=== PATIENT | female | born 1950 | race Caucasian/White ===

== ENCOUNTER 2017-05-20 23:58 | Emergency (ER) | payer OTHER ==
[~2017-05-20] VITALS: Ht 160 cm; Wt 79.9 kg
[2017-05-21 00:28] VITALS: TEMP 37; Ht 160 cm; Wt 79.9 kg
[2017-05-21 00:31] VITALS: BP 157/86
[2017-05-21 00:44] LABS: MEAN CELL VOLUME 92.3 fL (80-100); MEAN CORPUSCULAR HEMOGLOBIN 31.6 pg (25-34); MEAN CORPUSCULAR HGB CONC 34.3 g/dl (32-36); MEAN PLATELET VOLUME 9.8 fL (7.4-10.4); PLATELET COUNT 234 K/uL (130-400); RED BLOOD COUNT 5.09 M/uL (4.2-5.4); WHITE BLOOD COUNT 8.58 K/uL (4.8-10.8)
[2017-05-21] MEDS ORDERED: SODIUM CHLORIDE 0.9% 1000ML 1,000 ML IV STA (00:54)
[2017-05-21 01:02] LABS: POINT OF CARE TROPONIN I < 0.030 ng/ml (0-0.045)
--- NOTE | 2017-05-21 01:02 | EMERGENCY ROOM VISIT NOTE ---
History Report prepared by Ajayibe: Maureen Poon Under the Supervision of: Dr. Hector Keller M.D. First contact with patient: 00:49 Chief Complaint: CHEST PAIN Stated Complaint: CHEST PAIN Nursing Triage Summary: at game [place], started having CP and SOB at end of first half, waited until end of game to come to ER. states she also felt anxious during game and does currently. given 324 aspirin, 1 nitro spray by EMS History of Present Illness The patient is a 66 year old female who presents to the Emergency Room with complaints of sharp chest pain beginning a couple hours ago. The patient notes that she was at the [employer] game when the pain started. Presently, her pain is still present but lessened from its onset. The patient notes that she has had similar chest pains in the past and her PCP told her it was anxiety induced. She notes that when her chest pain began she felt anxious with the crowd at the game and notes it felt more difficult to breathe. The patient has a history of hypoglycemia, hypertension, and high cholesterol. Source of History: patient Onset: couple hours ago Position: chest Quality: sharp Timing: other (episode) Associated Symptoms: + SOB Review of Systems See HPI for pertinent positives and negatives. A total of ten systems were reviewed and were otherwise negative. Past Medical & Surgical Medical Problems: (1) High cholesterol (2) Hypertension Family History No pertinent family history stated. Social History Smoking Status: Never Smoker Smokeless Tobacco Use: No Drug Use: none Marital Status: Housing Status: lives with significant other Current/Historical Medications Scheduled Aspirin (Aspirin Ec), 81 MG PO QAM Atorvastatin (Lipitor), 10 MG PO Q2D Cholecalciferol (Vitamin D3), 1 CAP PO QAM Diltiazem Hcl Extended Release (Diltiazem Hcl Er), 240 MG PO QPM Olmesartan/Hctz (Benicar Hct 20/12.5), 1 TAB PO QAM Allergies Coded Allergies: Lidocaine (Verified Allergy, Severe, ANAPHYLAXIS, 05/21/17) Penicillins (Verified Allergy, Severe, RASH, 05/21/17) Sulfa Antibiotics (Verified Allergy, Severe, rash,swelling, 05/21/17) Acetone (Verified Allergy, Intermediate, RASH, 05/21/17) Amoxicillin (Verified Allergy, Intermediate, SHORTNESS OF BREATH, 05/21/17 ) Cephalosporins (Verified Allergy, Intermediate, RASH, 05/21/17) Ciprofloxacin (Verified Allergy, Intermediate, RASH, 05/21/17) Clindamycin (Verified Allergy, Intermediate, RASH, 05/21/17) Erythromycin (Verified Allergy, Intermediate, RASH, 05/21/17) Uncoded Allergies: MONOHYDRATE (Allergy, Intermediate, RASH, 05/21/17) Physical Exam Vital Signs Date Time Temp Pulse Resp B/P (MAP) Pulse Ox O2 Delivery O2 Flow Rate FiO2 05/21/17 03:53 102 05/21/17 02:58 95 20 99 Room Air 05/21/17 02:28 100 21 05/21/17 01:58 101 22 05/21/17 00:48 Room Air 05/21/17 00:48 98 Room Air 05/21/17 00:31 157/86 05/21/17 00:28 78 17 97 Room Air 05/21/17 00:28 37.0 92 18 170/86 96 Room Air 05/21/17 00:12 88 05/21/17 00:05 170/86 Physical Exam GENERAL: Awake, alert, anxious-appearing, in no distress HENT: Normocephalic, atraumatic. Oropharynx unremarkable. Dry MM. EYES: Normal conjunctiva. Sclera non-icteric. NECK: Supple. No nuchal rigidity. FROM. No JVD. RESPIRATORY: Clear to auscultation. CARDIAC: Regular rate, normal rhythm. Extremities warm and well perfused. Pulses equal. ABDOMEN: Soft, non-distended. No tenderness to palpation. No rebound or guarding. No masses. RECTAL: Deferred. MUSCULOSKELETAL: Chest examination reveals no tenderness. The back is symmetrical on inspection without obvious abnormality. There is no CVA tenderness to palpation. No joint edema. LOWER EXTREMITIES: Calves are equal size bilaterally and non-tender. No edema. No discoloration. NEURO: Normal sensorium. No sensory or motor deficits noted. SKIN: No rash or jaundice noted. Medical Decision & Procedures ER Provider Diagnostic Interpretation: Radiology results as stated below per my review and radiologist interpretation: Chest X-Ray: lungs clear normal mediastinum Laboratory Results 05/20/17 23:58 05/20/17 23:58 Test 05/20/17 23:58 05/21/17 00:43 05/21/17 00:52 10/22/17 02:44 Red Blood Count 5.09 M/uL (4.2-5.4) Mean Corpuscular Volume 92.3 fL (80-100) Mean Corpuscular Hemoglobin 31.6 pg (25-34) Mean Corpuscular Hemoglobin Concent 34.3 g/dl (32-36) RDW Standard Deviation 42.5 fL (36.4-46.3) RDW Coefficient of Variation 12.6 % (11.5-14.5) Mean Platelet Volume 9.8 fL (7.4-10.4) Anion Gap 7.0 mmol/L (3-11) Est Creatinine Clear Calc Drug Dose 51.7 ml/min Estimated GFR () 61.4 Estimated GFR (Non- 53.0 BUN/Creatinine Ratio 17.9 (10-20) Calcium Level 9.0 mg/dl (8.5-10.1) Total Bilirubin 0.3 mg/dl (0.2-1) Aspartate Amino Transf (AST/SGOT) 18 U/L (15-37) Alanine Aminotransferase (ALT/SGPT) 26 U/L (12-78) Alkaline Phosphatase 106 U/L (45-117) Total Creatine Kinase 108 U/L (26-192) Creatine Kinase MB 1.9 ng/ml (0.5-3.6) Creatine Kinase MB Ratio 1.8 (0-3.0) Total Protein 8.2 gm/dl (6.4-8.2) Albumin 3.9 gm/dl (3.4-5.0) Globulin 4.3 gm/dl (2.5-4.0) Albumin/Globulin Ratio 0.9 (0.9-2) Bedside D-Dimer 161 ng/mlFEU (0-450) Bedside Troponin I < 0.030 ng/ml (0-0.045) Prothrombin Time 10.5 SECONDS (9.0-12.0) Prothromb Time International Ratio 1.0 (0.9-1.1) Activated Partial Thromboplast Time 25.6 SECONDS (21.0-31.0) Partial Thromboplastin Ratio 1.0 Troponin I < 0.015 ng/ml (0-0.045) Laboratory results reviewed by me Medications Administered Medications (Trade) Dose Ordered Sig/Mary Route Start Time Stop Time Status Last Admin Dose Admin Sodium Chloride 1,000 ml @ 999 mls/hr Q1H1M STAT IV 05/21/17 00:54 05/21/17 01:54 DC 05/21/17 00:54 999 MLS/HR ECG Indication: chest pain Rate (beats per minute): 74 Rhythm: sinus with SA Findings: no acute ischemic change, other (normal axis, normal intervals) Comparison ECG Date: REPEAT EKG: Normal sinue 95 bpm, normal axis, no acute ischemia Change: no significant change ED Course 0053: The patient was evaluated in room A10. A complete history and physical exam was performed. 0054: Sodium Chloride 1000 ml @ 999 mls/hr IV. 0359: I reevaluated the patient. Discussed results and discharge instructions: She verbalized understanding and agreement. The patient is ready for discharge. Medical Decision I reviewed the patient's past medical history, medications, and the nursing notes as described above. Differential diagnoses: ACS, pneumonia, bronchitis, PE , gastritis, reflux, dissection The patient is a 66 y/o woman with a pmhx of HTN, HLD who presents to the ED with episode of CP that began at halft time of football game and was constant for 2 hours and resolved just [employer] to ED per HPI. On arrival the patient is fatigued appearing but in NAD. AFVSS. EKG unremarkable. CXR unremarkable. Trop negative x 2 with 2 hour delta. Repeat EKG unremarkable. Labs otherwise unremarkable. Heart score 3, low risk. Patient continued to be asymptomatic during ED observation. Findings and plan for follow-up reviewed with patient. Patient agreeable and d/c'd per discharge instructions. Medication Reconcilliation Current Medication List: was personally reviewed by me Blood Pressure Screening Patient's blood pressure: Elevated blood pressure Blood pressure disposition: Referred to PCP Impression Primary Impression: Substernal precordial chest pain Scribe Attestation The scribe's documentation has been prepared under my direction and personally reviewed by me in its entirety. I confirm that the note above accurately reflects all work, treatment, procedures, and medical decision making performed by me. Departure Information Dispostion Home / Self-Care Forms Call Back Authorization, HOME CARE DOCUMENTATION FORM, IMPORTANT VISIT INFORMATION Patient Instructions Chest Pain - [facility], My [facility] Additional Instructions Please follow up with your primary care physician in the next 1-3 days for re- evaluation. The cause of your symptoms are not clear at this time. However, your exam, EKG, chest xray, and lab results did not show signs of an emergent condition at this time. Return to the emergency department for worsening symptoms as described in the accompanying instructions.
[2017-05-21 01:08] LABS: BUN/CREATININE RATIO 17.9 (10-20); CREATININE 1.1 mg/dl (0.60-1.20); POTASSIUM 3.7 mmol/L (3.5-5.1)
[2017-05-21 01:10] LABS: PROTHROMBIN TIME (PATIENT) 10.5 SECONDS (9.0-12.0)
[2017-05-21 01:13] LABS: ALB/GLOB RATIO 0.9 (0.9-2); CKMB/CK RATIO 1.8 (0-3.0)
[2017-05-21] MEDS ORDERED: ASPI81TA28 PO (02:30)
[2017-05-21] MEDS ORDERED: BNC/20125 PO (02:30)
[2017-05-21] MEDS ORDERED: CHOL2000 PO (02:30)
[2017-05-21] MEDS ORDERED: ATOR10TA82 PO (02:31)
[2017-05-21] MEDS ORDERED: DILT240C74 PO (02:31)
[2017-05-21 02:58] VITALS: O2SAT 99
[2017-05-21 03:53] VITALS: PULSE 102
--- NOTE | 2017-05-21 07:15 | DIAGNOSTIC IMAGING REPORT ---
CHEST ONE VIEW PORTABLE CLINICAL HISTORY: Difficult chest pain, shortness of breath. COMPARISON STUDY: No previous studies for comparison. FINDINGS: The cardiac and mediastinal contours are normal. There is no evidence of focal pulmonary consolidation. There is no evidence of failure. No pleural effusions are visualized.[ IMPRESSION: No active disease in the chest. Electronically signed by: Nathan Mustafa M.D. 05/21/2017 7:14 AM Dictated Date/Time: 05/21/2017 7:14 AM
== END 2017-05-21 04:09 | disposition home or self-care (01) ==
LOC: EDBD 23:58 → C.EDA 05-21
DX: R07.2 Precordial pain (principal); E78.00 Pure hypercholesterolemia, unspecified; I10 Essential (primary) hypertension; E16.2 Hypoglycemia, unspecified; Z79.82 Long term (current) use of aspirin; Z79.899 Other long term (current) drug therapy